=== PATIENT | female | born 1990 | race Caucasian/White ===

== ENCOUNTER 2019-02-26 09:41 | Emergency (ER) | payer MEDICAID ==
[2019-02-26] MEDS ORDERED: Sodium Chloride 0.9% 10 ML Syringe FLUSH PRN (10:06)
[2019-02-26 10:35] LABS: CHLORIDE,CL 106 mmol/L (98-107); SODIUM,NA 142 mmol/L (136-145)
--- NOTE | 2019-02-26 10:59 | EDM.PDOC ---
ED HPI GENERAL MEDICAL PROBLEM - General Chief Complaint: Abdominal Pain Stated Complaint: right upper abd pain Time Seen by Provider: 02/26/19 10:10 Source of Information: Reports: Patient History Limitations: Reports: No Limitations - History of Present Illness INITIAL COMMENTS - FREE TEXT/NARRATIVE: Patient comes to ER with complaint of RUQ pain that has been present for approximately 10 days. Sharp at times, worsens after meals. Does not completely resolve. Vaginal delivery Jan 17 of term baby. No problems between Jan 17 and Feb 17. [place] well. Mild nausea at times. No emesis. Has been constipated. Pain present daily, gradually worsening in intensity. She has tried Ibuprofen, heat/ice, Swapnil-pollard, hot baths, Tums and Zantac too but nothing helps pain. Pt reports she tried being NPO 12 hours and that did help a little. Denies fevers. No HEENT changes. Respiratory + for cough, not severe but has been persistent since having a cold last month. No SOB/significant sputum. GI + for nausea and constipation. No blood in stools. negative for UTI changes/hematuria. Neuro negative for acute change. No rashes. No history of abdominal surgery. Right Upper Abdominal Pain Score (Numeric/FACES): 9 - Related Data Allergies Allergy/AdvReac Type Severity Reaction Status Date / Time codeine Allergy Stomach Verified 02/26/19 09:43 Ache Home Meds: Home Meds Cholecalciferol (Vitamin D3) [Vitamin D3] 1,000 unit PO DAILY 02/26/19 [History] FLUoxetine HCl [Fluoxetine] 20 mg PO DAILY 02/26/19 [History] Ferrous Sulfate [Iron] 325 mg PO DAILY 02/26/19 [History] Folic Acid 1 mg PO DAILY 02/26/19 [History] Gabapentin [Neurontin] 600 mg PO BID 02/26/19 [History] Ibuprofen 600 mg PO Q6H PRN 02/26/19 [History] Past Medical History Psychiatric History: Reports: Anxiety, Depression Social & Family History - Tobacco Use Smoking Status *Q: Current Every Day Smoker Smoking Cessation Information Provided To Patient: Yes - Caffeine Use Caffeine Use: Reports: Coffee - Alcohol Use Alcohol Use History: No - Recreational Drug Use Recreational Drug Use: No Drug Use in Last 12 Months: No ED ROS GENERAL - Review of Systems Review Of Systems: ROS reveals no pertinent complaints other than HPI. ED EXAM, GENERAL - Physical Exam Exam: See Below Exam Limited By: No Limitations General Appearance: Alert, WD/WN, Mild Distress Eye Exam: Bilateral Eye: EOMI, PERRL Ears: Normal External Exam Nose: No: Nasal Deformity, Nasal Swelling, Nasal Drainage Throat/Mouth: Normal Lips, Normal Voice, No Airway Compromise Head: Atraumatic, Normocephalic Neck: Normal Inspection, Supple, Non-Tender, Full Range of Motion Respiratory/Chest: No Respiratory Distress, Lungs Clear, Normal Breath Sounds, No Accessory Muscle Use, Chest Non-Tender Cardiovascular: Regular Rate, Rhythm, No Edema, No Murmur GI/Abdominal: Guarding (right side), Tender (RUQ and RLQ), Abnormal Bowel Sounds (decreased throughout), Other (nontender on left side of abdomen and suprapubic area). No: Rigid, Rebound (Female) Exam: Deferred Rectal (Female) Exam: Deferred Back Exam: CVA Tenderness (R). No: Paraspinal Tenderness, Vertebral Tenderness Extremities: Normal Inspection, Normal Capillary Refill Neurological: Alert, Oriented, Normal Cognition, No Motor/Sensory Deficits Psychiatric: Normal Affect, Normal Mood Skin Exam: Warm, Intact, Normal Color, No Rash Course - Vital Signs Last Recorded V/S: Last Vital Signs Temp 36.8 C 02/26/19 09:46 Pulse 98 02/26/19 09:46 Resp 15 02/26/19 09:46 BP 109/71 02/26/19 09:46 Pulse Ox 93 L 02/26/19 09:46 - Orders/Labs/Meds Orders: Active Orders 24 hr Category Date Time Status Abdomen Comp [US] Stat Exams 02/26/19 09:57 Taken Abdomen Series w Chest 1V [CR] Routine Exams 02/26/19 11:01 Taken Saline Lock Insert [OM.PC] Routine Oth 02/26/19 10:06 Ordered Labs: Laboratory Tests 02/26/19 02/26/19 02/26/19 Range/Units 10:15 10:15 10:15 WBC 9.4 (4.0-10.2) K/uL RBC 3.79 (3.77-5.09) M/uL Hgb 12.2 (11.7-15.5) g/dL Hct 37.3 (34.0-46.0) % MCV 98.4 H (84.0-98.0) fL MCH 32.2 (28.2-33.3) pg MCHC 32.7 (31.7-36.0) g/dL RDW 12.3 (11.2-14.1) % Plt Count 317 (150-350) K/uL Neut % (Auto) 64.6 (45.0-80.0) % Lymph % (Auto) 22.5 (10.0-50.0) % [place] % (Auto) 8.0 (2.0-14.0) % Eos % (Auto) 4.5 (0.0-5.0) % Baso % (Auto) 0.4 (0.0-2.0) % Neut # (Auto) 6.05 (1.40-7.00) K/uL Lymph # (Auto) 2.11 (0.50-3.50) K/uL [place] # (Auto) 0.75 (0.00-1.00) K/uL Eos # (Auto) 0.42 (0.00-0.50) K/uL Baso # (Auto) 0.04 (0.00-0.20) K/uL D-Dimer, Quantitative (0-400) ng/mL Sodium 142 (136-145) mmol/L Potassium 4.1 (3.5-5.1) mmol/L Chloride 106 (98-107) mmol/L Carbon Dioxide 24.0 (21.0-32.0) mmol/L BUN 14 (7-18) mg/dL Creatinine 0.68 (0.51-1.17) mg/dL Est Cr Clr Drug Dosing 104.46 mL/min Estimated GFR (MDRD) > 60 mL/min Glucose 95 (74-106) mg/dL Lactic Acid (0.4-2.0) mmol/L Calcium 8.4 L (8.5-10.1) mg/dL Total Bilirubin 0.2 (0.2-1.0) mg/dL AST 12 L (15-37) U/L ALT 18 (12-78) U/L Alkaline Phosphatase 70 (46-116) IU/L Total Protein 7.4 (6.4-8.2) g/dL Albumin 2.9 L (3.4-5.0) g/dL Amylase 68 (25-115) U/L Lipase 108 (73-393) U/L HCG, Qual Negative (NEGATIVE) Specimen Type Urine Color Urine Appearance Urine pH (5.0-9.0) Ur Specific [place] (1.005-1.030) Urine Protein (NEGATIVE) mg/dL Urine Glucose (UA) (NEGATIVE) mg/dL Urine Ketones (NEGATIVE) mg/dL Urine Occult Blood (NEGATIVE) Urine Nitrite (NEGATIVE) Urine Bilirubin (NEGATIVE) Urine Urobilinogen (0.2-1.0) E.U./dL Ur Leukocyte Esterase (NEGATIVE) Urine RBC /HPF Urine WBC /HPF Ur Epithelial Cells /LPF Urine Yeast (NEGATIVE) /HPF 02/26/19 02/26/19 02/26/19 Range/Units 10:15 10:15 12:00 WBC (4.0-10.2) K/uL RBC (3.77-5.09) M/uL Hgb (11.7-15.5) g/dL Hct (34.0-46.0) % MCV (84.0-98.0) fL MCH (28.2-33.3) pg MCHC (31.7-36.0) g/dL RDW (11.2-14.1) % Plt Count (150-350) K/uL Neut % (Auto) (45.0-80.0) % Lymph % (Auto) (10.0-50.0) % [place] % (Auto) (2.0-14.0) % Eos % (Auto) (0.0-5.0) % Baso % (Auto) (0.0-2.0) % Neut # (Auto) (1.40-7.00) K/uL Lymph # (Auto) (0.50-3.50) K/uL [place] # (Auto) (0.00-1.00) K/uL Eos # (Auto) (0.00-0.50) K/uL Baso # (Auto) (0.00-0.20) K/uL D-Dimer, Quantitative 3560 H (0-400) ng/mL Sodium (136-145) mmol/L Potassium (3.5-5.1) mmol/L Chloride (98-107) mmol/L Carbon Dioxide (21.0-32.0) mmol/L BUN (7-18) mg/dL Creatinine (0.51-1.17) mg/dL Est Cr Clr Drug Dosing mL/min Estimated GFR (MDRD) mL/min Glucose (74-106) mg/dL Lactic Acid 0.6 (0.4-2.0) mmol/L Calcium (8.5-10.1) mg/dL Total Bilirubin (0.2-1.0) mg/dL AST (15-37) U/L ALT (12-78) U/L Alkaline Phosphatase (46-116) IU/L Total Protein (6.4-8.2) g/dL Albumin (3.4-5.0) g/dL Amylase (25-115) U/L Lipase (73-393) U/L HCG, Qual (NEGATIVE) Specimen Type Urincc Urine Color Yellow Urine Appearance Slightly cloudy Urine pH 6.5 (5.0-9.0) Ur Specific [place] 1.010 (1.005-1.030) Urine Protein Negative (NEGATIVE) mg/dL Urine Glucose (UA) Negative (NEGATIVE) mg/dL Urine Ketones Negative (NEGATIVE) mg/dL Urine Occult Blood Moderate H (NEGATIVE) Urine Nitrite Negative (NEGATIVE) Urine Bilirubin Negative (NEGATIVE) Urine Urobilinogen 0.2 (0.2-1.0) E.U./dL Ur Leukocyte Esterase Trace H (NEGATIVE) Urine RBC 0-5 /HPF Urine WBC 0-5 /HPF Ur Epithelial Cells Rare /LPF Urine Yeast Rare H (NEGATIVE) /HPF Meds: Medications Discontinued Medications Generic Name Dose Route Start Last Admin Trade Name Wilfredoq PRN Reason Stop Dose Admin Sodium Chloride 1,000 mls @ 999 mls/hr 02/26/19 11:02 02/26/19 11:16 Normal Saline IV 02/26/19 12:02 999 mls/hr .BOLUS ONE Administration Ketorolac Tromethamine 30 mg 02/26/19 12:36 02/26/19 12:55 Toradol IVPUSH 02/26/19 12:37 30 mg ONETIME ONE Administration Magnesium Citrate 296 ml 02/26/19 12:36 02/26/19 12:55 Citrate Of Magnesia PO 02/26/19 12:37 296 ml ONETIME ONE Administration Morphine Sulfate 2 mg 02/26/19 11:02 02/26/19 11:15 Morphine IVPUSH 02/26/19 11:03 2 mg ONETIME ONE Administration Ondansetron HCl 4 mg 02/26/19 11:02 02/26/19 11:16 Zofran IVPUSH 02/26/19 11:03 4 mg ONETIME ONE Administration Sodium Chloride 10 ml 02/26/19 10:06 02/26/19 11:16 Saline Flush FLUSH 10 ml ASDIRECTED PRN Administration Keep Vein Open Tramadol HCl 50 mg 02/26/19 12:36 02/26/19 12:56 Ultram PO 02/26/19 12:37 50 mg ONETIME ONE Administration - Radiology Interpretation Free Text/Narrative:: Chest/abdominal film showed large bolus of stool in ascending colon/hepatic flexure. - Re-Assessments/Exams Free Text/Narrative Re-Assessment/Exam: 02/26/19 10:59 Returned from US 10:50. Preliminary report from [facility] revealed no specific abnormalities identified by US in RUQ region. IV fluid bolus and pain medication ordered. Increased stool noted ascending colon/hepatic flexure. WBC normal. LFTs normal. Amylase/lipase normal. DDimer elevated. Suspect secondary to recent . Discussed DDimer elevation and potential for blood clots if elevated (in this case there could be a problem in lower right lung that could be causing pain) with patient. Patient informed that CT of chest best way to rule this possibility out. She declined having the CT today and would rather try MagCitrate to see if her problem is constipation. She denies feeling SOB. Has not had any leg pain/swelling. O2 sat 93% on room air however patient is smoker and is avoiding taking deep breaths as it aggravates that abdominal discomfort. Patient says she will come back if any SOB develops, and if pain has not improved by tomorrow morning and would be agreeable with being scanned at that time. May also need to consider abdominal scan if pain persists. Departure - Departure Time of Disposition: 13:00 Disposition: Home, Self-Care 01 Condition: Good Clinical Impression: Right upper quadrant abdominal pain, Elevated d-dimer - Discharge Information *PRESCRIPTION DRUG MONITORING PROGRAM REVIEWED*: Not Applicable *COPY OF PRESCRIPTION DRUG MONITORING REPORT IN PATIENT DANIELLA: Not Applicable Instructions: Abdominal Pain, Adult Referrals: PCP,Unknown [Ordering Only Provider] - Forms: ED Department Discharge Additional Instructions: Drink entire bottle of Mag Citrate. See if promoting a bowel movement helps get rid of the pain. If there is significant improvement noted, drink 1/2 a bottle tomorrow and 1/2 on Sunday. If you are pain free after that, follow up as needed. If pain persists, or worsens, return tomorrow for recheck and probably CT scan to look for other causes of pain as we discussed in the ER. - My Orders Last 24 Hours: My Active Orders 02/26/19 09:57 Abdomen Comp [US] Stat 02/26/19 10:06 Saline Lock Insert [OM.PC] Routine 02/26/19 11:01 Abdomen Series w Chest 1V [CR] Routine - Assessment/Plan Last 24 Hours: My Active Orders 02/26/19 09:57 Abdomen Comp [US] Stat 02/26/19 10:06 Saline Lock Insert [OM.PC] Routine 02/26/19 11:01 Abdomen Series w Chest 1V [CR] Routine
[2019-02-26] MEDS ORDERED: Sodium Chloride 0.9% 1,000 ML IV ONE (11:02)
[2019-02-26] MEDS ORDERED: Morphine 2 MG/ML Syringe IVPUSH ONE (11:02)
[2019-02-26] MEDS ORDERED: Ondansetron 4 MG/2 ML SDV IVPUSH ONE (11:02)
[2019-02-26] MEDS ORDERED: Magnesium Citrate Solution 296 ML Bottle PO ONE (12:36)
[2019-02-26] MEDS ORDERED: Ketorolac 30 MG/ML SDV IVPUSH ONE (12:36)
[2019-02-26] MEDS ORDERED: traMADol 50 MG Tab PO ONE (12:36)
== END 2019-02-26 13:15 | disposition home or self-care (01) ==
LOC: LL.US 09:41
DX: O90.89 Other complications of the puerperium, not elsewhere classified (principal); R10.11 Right upper quadrant pain; R79.89 Other specified abnormal findings of blood chemistry; O99.345 Other mental disorders complicating the puerperium; F41.9 Anxiety disorder, unspecified; F32.9 Major depressive disorder, single episode, unspecified; O99.335 Smoking (tobacco) complicating the puerperium; F17.200 Nicotine dependence, unspecified, uncomplicated; Z88.5 Allergy status to narcotic agent; Z79.899 Other long term (current) drug therapy
CPT/HCPCS: 36415; 74022; 76700; 80053; 81001; 82150; 83605; 83690; 84703; 85025; 85379; 96361; 96374; 96375; 99284-25; A9270-GY; J1885; J2270; J2405; J7030

== ENCOUNTER 2019-02-27 14:31 | Emergency (ER) | payer MEDICAID ==
[2019-02-27] MEDS ORDERED: Sodium Chloride 0.9% 1,000 ML IV ONE (15:03)
[2019-02-27] MEDS ORDERED: Ondansetron 4 MG/2 ML SDV IVPUSH ONE (15:04)
[2019-02-27] MEDS ORDERED: fentaNYL 100 MCG/2 ML SDV IVPUSH ONE (15:14)
[2019-02-27] MEDS: Sodium Chloride 0.9% 10 ML Syringe FLUSH PRN ×2 (15:25→15:27)
[2019-02-27] MEDS ORDERED: Iopamidol 755 Mg/ML 100 ML Bottle IVPUSH ONE (15:32)
[2019-02-27 15:53] LABS: CHLORIDE,CL 107 mmol/L (98-107); SODIUM,NA 143 mmol/L (136-145)
--- NOTE | 2019-02-27 15:54 | EDM.PDOC ---
ED HPI GENERAL MEDICAL PROBLEM - General Chief Complaint: Abdominal Pain Stated Complaint: Abd pain Time Seen by Provider: 02/27/19 15:02 Source of Information: Reports: Patient History Limitations: Reports: No Limitations - History of Present Illness INITIAL COMMENTS - FREE TEXT/NARRATIVE: Patient returns to ER for continued evaluation of RUQ pain now present for approx 11 days. Refer to note from yesterday's visit for further history. Unremarkable RUQ US study, plain abdominal films/labs yesterday. Was noted to have elevated ddimer. Scan to R/O PE as cause of pain recommended, however patient wished to instead try MagCitrate to see if constipation may be a factor (stool noted on plain film in area of ascending colon). She reports that she has multiple bowel movements overnight, but the pain has not changed. No fevers. Pain noted to often be worse after meals. Nausea at times. - Related Data Allergies Allergy/AdvReac Type Severity Reaction Status Date / Time codeine Allergy Stomach Verified 02/27/19 15:16 Ache Home Meds: Home Meds Cholecalciferol (Vitamin D3) [Vitamin D3] 1,000 unit PO DAILY 02/26/19 [History] FLUoxetine HCl [Fluoxetine] 20 mg PO DAILY 02/26/19 [History] Ferrous Sulfate [Iron] 325 mg PO DAILY 02/26/19 [History] Folic Acid 1 mg PO DAILY 02/26/19 [History] Gabapentin [Neurontin] 600 mg PO BID 02/26/19 [History] Ibuprofen 600 mg PO Q6H PRN 02/26/19 [History] Lactulose 10 gm PO ASDIRECTED #6 packet 02/27/19 [Rx] Past Medical History Cardiovascular History: Reports: None Respiratory History: Reports: None Gastrointestinal History: Reports: GERD Genitourinary History: Reports: None 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: Musculoskeletal History: Reports: Fracture Neurological History: Reports: None Psychiatric History: Reports: Anxiety, Depression Endocrine/Metabolic History: Reports: None Hematologic History: Reports: None Immunologic History: Reports: None Oncologic (Cancer) History: Reports: None Dermatologic History: Reports: Psoriasis - Infectious Disease History Infectious Disease History: Reports: Chicken Pox, Shingles - Past Surgical History HEENT Surgical History: Reports: Oral Surgery, Tonsillectomy, Other (See Below) Other HEENT Surgeries/Procedures: uvulia ectomy Cardiovascular Surgical History: Reports: None Respiratory Surgical History: Reports: None Musculoskeletal Surgical History: Reports: Other (See Below) Other Musculoskeletal Surgeries/Procedures:: left wrist rods/plates post fracture Social & Family History - Caffeine Use Caffeine Use: Reports: Coffee ED ROS GENERAL - Review of Systems Review Of Systems: See Below Constitutional: Denies: Fever, Chills, Malaise, Weakness, Fatigue, Night Sweats , Diaphoresis, Decreased Appetite, Weight Loss, Weight Gain HEENT: Reports: No Symptoms Respiratory: Reports: Other (taking deep breath aggravates RUQ pain). Denies: Shortness of Breath, Wheezing, Cough, Sputum, Hemoptysis Cardiovascular: Reports: No Symptoms. Denies: Chest Pain GI/Abdominal: Reports: Abdominal Pain, Constipation (hard stools yesterday), Nausea. Denies: Black Stool, Bloody Stool, Vomiting : Reports: No Symptoms Musculoskeletal: Reports: No Symptoms Skin: Reports: No Symptoms Neurological: Reports: No Symptoms Psychiatric: Reports: No Symptoms ED EXAM, GENERAL - Physical Exam Exam: See Below Exam Limited By: No Limitations General Appearance: Alert, WD/WN, Mild Distress Eye Exam: Bilateral Eye: EOMI, PERRL Ears: Normal External Exam Nose: No: Nasal Deformity, Nasal Swelling, Nasal Drainage Throat/Mouth: Normal Inspection, Normal Lips, Normal Voice, No Airway Compromise Head: Atraumatic, Normocephalic Neck: Normal Inspection, Supple, Non-Tender, Full Range of Motion Respiratory/Chest: No Respiratory Distress, Lungs Clear, Normal Breath Sounds, No Accessory Muscle Use, Chest Non-Tender Cardiovascular: Normal Peripheral Pulses, Regular Rate, Rhythm, No Murmur GI/Abdominal: Normal Bowel Sounds, Soft, Tender (RUQ). No: Guarding, Rigid, Rebound, Hepatomegaly (Female) Exam: Deferred Rectal (Female) Exam: Deferred Back Exam: Normal Inspection Extremities: Normal Inspection, Normal Range of Motion, Non-Tender, Normal Capillary Refill Neurological: Alert, Oriented, Normal Cognition, Normal Gait, No Motor/Sensory Deficits Psychiatric: Normal Affect, Normal Mood Skin Exam: Warm, Dry, Intact, Normal Color Course - Vital Signs Last Recorded V/S: Last Vital Signs Temp 37.4 C 02/27/19 14:52 Pulse 81 02/27/19 14:52 Resp 16 02/27/19 14:52 BP 154/99 H 02/27/19 14:52 Pulse Ox 94 L 02/27/19 14:52 - Orders/Labs/Meds Orders: Active Orders 24 hr Category Date Time Status Abdomen Pelvis w Cont [CT] Stat Exams 02/27/19 15:03 Ordered PE Chest [Ang Chest] [CT] Stat Exams 02/27/19 15:02 Ordered Sodium Chloride 0.9% [Normal Saline] 1,000 ml Med 02/27/19 15:03 Ordered IV .BOLUS Sodium Chloride 0.9% [Saline Flush] Med 02/27/19 15:03 Active 10 ml FLUSH ASDIRECTED PRN Saline Lock Insert [OM.PC] Routine Oth 02/27/19 15:02 Ordered Medication Orders Sodium Chloride (Normal Saline) 1,000 mls @ 500 mls/hr IV .BOLUS ONE Stop: 02/27/19 17:02 Last Admin: 02/27/19 15:23 Dose: 500 mls/hr Sodium Chloride (Saline Flush) 10 ml FLUSH ASDIRECTED PRN PRN Reason: Keep Vein Open Last Admin: 02/27/19 15:27 Dose: 10 ml Admin: 02/27/19 15:25 Dose: 10 ml Labs: Laboratory Tests 02/27/19 02/27/19 02/27/19 Range/Units 15:20 15:20 15:20 WBC 9.2 (4.0-10.2) K/uL RBC 3.91 (3.77-5.09) M/uL Hgb 12.5 (11.7-15.5) g/dL Hct 38.2 (34.0-46.0) % MCV 97.7 (84.0-98.0) fL MCH 32.0 (28.2-33.3) pg MCHC 32.7 (31.7-36.0) g/dL RDW 12.0 (11.2-14.1) % Plt Count 347 (150-350) K/uL Neut % (Auto) 60.2 (45.0-80.0) % Lymph % (Auto) 28.5 (10.0-50.0) % [place] % (Auto) 7.1 (2.0-14.0) % Eos % (Auto) 3.9 (0.0-5.0) % Baso % (Auto) 0.3 (0.0-2.0) % Neut # (Auto) 5.54 (1.40-7.00) K/uL Lymph # (Auto) 2.62 (0.50-3.50) K/uL [place] # (Auto) 0.65 (0.00-1.00) K/uL Eos # (Auto) 0.36 (0.00-0.50) K/uL Baso # (Auto) 0.03 (0.00-0.20) K/uL Sodium 143 (136-145) mmol/L Potassium 3.9 (3.5-5.1) mmol/L Chloride 107 (98-107) mmol/L Carbon Dioxide 24.2 (21.0-32.0) mmol/L BUN 7 (7-18) mg/dL Creatinine 0.63 (0.51-1.17) mg/dL Est Cr Clr Drug Dosing TNP Estimated GFR (MDRD) > 60 mL/min Glucose 88 (74-106) mg/dL Lactic Acid 0.5 (0.4-2.0) mmol/L Calcium 8.0 L (8.5-10.1) mg/dL Total Bilirubin 0.2 (0.2-1.0) mg/dL AST 18 (15-37) U/L ALT 19 (12-78) U/L Alkaline Phosphatase 85 (46-116) IU/L Total Protein 7.7 (6.4-8.2) g/dL Albumin 3.0 L (3.4-5.0) g/dL Meds: Medications Generic Name Dose Route Start Last Admin Trade Name Freq PRN Reason Stop Dose Admin Sodium Chloride 1,000 mls @ 500 mls/hr 02/27/19 15:03 02/27/19 15:23 Normal Saline IV 02/27/19 17:02 500 mls/hr .BOLUS ONE Administration Sodium Chloride 10 ml 02/27/19 15:03 02/27/19 15:27 Saline Flush FLUSH 10 ml ASDIRECTED PRN Administration Keep Vein Open Discontinued Medications Generic Name Dose Route Start Last Admin Trade Name Freq PRN Reason Stop Dose Admin Fentanyl 100 mcg 02/27/19 15:14 02/27/19 15:24 Sublimaze IVPUSH 02/27/19 15:15 100 mcg ONETIME ONE Administration Iopamidol 100 ml 02/27/19 15:32 02/27/19 15:56 [id number] (76%) IVPUSH 02/27/19 15:33 100 ml ONETIME ONE Administration Lactulose 20 gm 02/27/19 16:43 02/27/19 16:54 Cephulac PO 02/27/19 16:44 20 gm ONETIME ONE Administration Ondansetron HCl 4 mg 02/27/19 15:04 02/27/19 15:24 Zofran IVPUSH 02/27/19 15:05 4 mg ONETIME ONE Administration - Re-Assessments/Exams Free Text/Narrative Re-Assessment/Exam: 02/27/19 17:01 CT of chest performed to rule out PE and was negative. CT of abdomen did not show evidence of infection/liver changes/gallbladder changes/appendicitis. Radiology did not large amount of stool still in RUQ area. Labs unremarkable. Patient vital signs stable/afebrile. Continue to suspect that pain is secondary to constipation/obstipation. Findings shared with patient and treatment plan discussed/formulated. Plan at this time is to have her take one dose Lactulose. She will also drink one dose of MagCitrate with Miralax when she gets home this evening. She is to repeat the Lactulose as prescribed tomorrow and Sunday. No further MagCitrate planned at this time. Patient knows to follow up in ER if any new problems are noted. She is also to follow up if pain complaint does not respond to this course of treatment. Departure - Departure Time of Disposition: 16:55 Disposition: Home, Self-Care 01 Clinical Impression: Right upper quadrant abdominal pain Constipation Qualifiers: Constipation type: unspecified constipation type Qualified Code(s): K59.00 - Constipation, unspecified - Discharge Information *PRESCRIPTION DRUG MONITORING PROGRAM REVIEWED*: Not Applicable *COPY OF PRESCRIPTION DRUG MONITORING REPORT IN PATIENT DANIELLA: Not Applicable Prescriptions: Lactulose 10 gm PO ASDIRECTED #6 packet Referrals: PCP,None [Primary Care Provider] - Forms: ED Department Discharge Additional Instructions: supervisor 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 Mix 17gm dose of Miralax in one bottle of Mag Citrate and drink it tonight when you get home. You may grain picker a prescription for Lactulose tomorrow and take that as directed for another two days. See if pain improves. Stay hydrated. Follow up as needed. If pain does not improve, return for recheck at clinic or ER. - My Orders Last 24 Hours: My Active Orders 02/27/19 15:02 PE Chest [Ang Chest] [CT] Stat Saline Lock Insert [OM.PC] Routine 02/27/19 15:03 Abdomen Pelvis w Cont [CT] Stat Sodium Chloride 0.9% [Normal Saline] 1,000 ml IV .BOLUS Sodium Chloride 0.9% [Saline Flush] 10 ml FLUSH ASDIRECTED PRN - Assessment/Plan Last 24 Hours: My Active Orders 02/27/19 15:02 PE Chest [Ang Chest] [CT] Stat Saline Lock Insert [OM.PC] Routine 02/27/19 15:03 Abdomen Pelvis w Cont [CT] Stat Sodium Chloride 0.9% [Normal Saline] 1,000 ml IV .BOLUS Sodium Chloride 0.9% [Saline Flush] 10 ml FLUSH ASDIRECTED PRN
[2019-02-27] MEDS ORDERED: Lactulose Soln 10 GM/15 ML 30 ML UD Cup PO ONE (16:43)
== END 2019-02-27 17:05 | disposition home or self-care (01) ==
LOC: LL.ED 14:31
DX: K59.00 Constipation, unspecified (principal); F41.9 Anxiety disorder, unspecified; F32.9 Major depressive disorder, single episode, unspecified; Z88.5 Allergy status to narcotic agent; Z79.899 Other long term (current) drug therapy
CPT/HCPCS: 36415; 71275; 74177; 80053; 83605; 85025; 96361; 96374; 96375; 99284; A9270; J2405; J3010; J7030; Q9967